=== PATIENT | male | born 1990 | race African-American/Black ===

== ENCOUNTER 2016-10-28 16:17 | Emergency (ER) | payer MEDICAID ==
[~2016-10-28] VITALS: Ht 175.3 cm; Wt 80.0 kg
[2016-10-28 16:34] VITALS: BP 163/71
[2016-10-28] MEDS ORDERED: IBUPROFEN 600MG TABLET PO ONE (17:30)
[2016-10-28] MEDS ORDERED: TETANUS, DIPHTHERIA, PERTUSSIS VAC/PF 0.5ML (>7YR OLD) IM ONE (17:30)
== END 2016-10-28 18:16 | disposition home or self-care (01) ==
LOC: ER 16:19
DX: S61.539A Puncture wound without foreign body of unspecified wrist, initial encounter (principal); F17.210 Nicotine dependence, cigarettes, uncomplicated; Y04.1XXA Assault by human bite, initial encounter
CPT/HCPCS: 90471; 90715; 99283

== ENCOUNTER 2016-11-25 14:49 | Emergency (ER) | payer MEDICAID ==
[~2016-11-25] VITALS: Ht 175.3 cm; Wt 78.0 kg
[2016-11-25 14:58] VITALS: BP 124/81
[2016-11-25] MEDS ORDERED: HYDROCODONE/ACETAMINOPHEN 5/325MG TABLET PO ONE (16:00)
== END 2016-11-25 16:31 | disposition home or self-care (01) ==
LOC: ER 15:11
DX: K04.7 Periapical abscess without sinus (principal); K08.89 Other specified disorders of teeth and supporting structures; F17.210 Nicotine dependence, cigarettes, uncomplicated
CPT/HCPCS: 99283